=== PATIENT | female | born 1985 | race Caucasian/White ===

== ENCOUNTER 2017-05-22 07:53 | Inpatient (IN) | payer OTHER ==
[~2017-05-22] VITALS: Ht 160 cm; Wt 80.7 kg
[2017-05-22 08:39] LABS: ABSOLUTE BASOPHIL COUNT 0 /CUMM (0.0-0.2); ABSOLUTE EOSINOPHIL COUNT 0 /CUMM (0.0-0.7); ABSOLUTE GRANULOCYTE CT 9.7 /CUMM (1.4-6.5); ABSOLUTE LYMPH COUNT 1.1 /CUMM (1.2-3.4); ABSOLUTE MONOCYTE COUNT 0.6 /CUMM (0.10-0.60); BASOPHIL % 0.3 % (0.0-2.0); EOSINOPHIL % 0.1 % (0-5); GRANULOCYTE % 85.3 % (42.2-75.2); HEMATOCRIT 39.5 % (37-47); MEAN CORPUSCULAR HGB 30.7 PG (27.0-31.0); MEAN CORPUSCULAR HGB CONC 34.3 G/DL (33.0-37.0); MEAN CORPUSCULAR VOLUME 89.7 FL (81.0-99.0); PLATELET COUNT 276 /CUMM (130-400); RBC DISTRIBUTION WIDTH 13.1 % (11.5-14.5); RED BLOOD CELL CT 4.41 /CUMM (4.20-5.40)
--- NOTE | 2017-05-22 09:24 | History & Physical ---
General Information and HPI MD Statement: I have seen and personally examined VIKTOR COHN and documented this H&P. The patient is a 31 year old female at 41 weeks and 1 days gestation who presented with a chief complaint of labor pains. 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 200 mcg q day Rubella non-immune h/o IUGR fibroid uterus Growth good for this depression/anxiety on lexapro 10mg q day Allergies/Medications Allergies: Uncoded Allergies: Allergy Other N Food Allergies N Med Allergies BENADRYL Compliance With Home Meds: GOOD Past History workers compensation coordinator History : 3 Para: 2 Last Menstrual Period: 08/06/2016 Estimated Delivery Date: 05/21/2017 Past workers compensation coordinator History: growth restriction, labor Past Pregnancies Past Pregnancies: 1 Date of Delivery: 09/26/08 Gestational Age: 41 Length of Labor: 6h Weight: 6# 12oz Type of Delivery: vaginal () Anesthesia: epidural Place of Delivery: [facility] Complications: NONE Past Pregnancies: 2 Date of Delivery: 02/15/14 Gestational Age: 39 Length of Labor: 5H Weight: 3#3OZ Type of Delivery: vaginal Anesthesia: EPIDURAL Place of Delivery: [facility] Complications: NONE Medical History Blood Transfusion Hx: No Respiratory: asthma Psychiatric: anxiety, depression Endocrine: Beth's thyroiditis Surgical History Pertinent Surgical History: none Review of Systems Review of Systems Constitutional: Reports: no symptoms. Denies: chills, fever. EENTM: Denies: blurred vision, double vision, visual changes. Cardiovascular: Denies: chest pain, edema. Respiratory: Denies: cough, short of breath. GI: Reports: abdominal pain. Denies: diarrhea, nausea, vomiting. Neurological/Psychological: Reports: anxiety. Exam & Diagnostic Data Last 24 Hrs of Vital Signs/I&O vss Obstetric Exam Wgt Gained During : 10# Pelvimetry: tested to 6#6oz Dilation (cm): 9 Effacement (%): 99 Station: -1 Membranes: intact Fluid: unknown Fundal Height (cm): 36 Multiple Gestation? No Contractions: q 3 min #1 - FHR Baseline: 140 Category: 1 Estimated Weight: 3500g Presentation: vtx Patient for Induction? No Physical Exam General Appearance Alert, Oriented X3, Cooperative, Moderate Distress Skin No Rashes HEENT Atraumatic Neck Supple Cardiovascular Regular Rate Lungs Clear to Auscultation Extremities No Edema Labs Blood Type & Rh: O neg Antibody Screen: neg Hct/Hgb & Platelets #1: 38.2/12.5/252 Hct/Hgb & Platelets #2: 34.5/11/228 Rubella: non-immune VDRL #1: nr VDRL #2: nr HbsAg: neg HIV #1: nr HIV #2 nr 1 Hr P Group B Strep: negative Initial Ultrasound: 10/03/16 7 weeks Anatomy Ultrasound: 12/25/16 normal with 3 cm fibroid in ANGEL Ultrasound for EFW: 05/05/17 21%tile Genetic Testing: nt and cf DNA normal Last 24 Hrs of Labs/Loi: Laboratory Tests 05/22/17 0820: Urinalysis LIGHT H, Urine Color YEL, Urine Clarity HAZY H, Urine pH 6.0, Ur Specific [place] >= 1.030, Urine Protein TRACE H, Urine Ketones 15 H, Urine Nitrite NEG, Urine Bilirubin NEG, Urine Urobilinogen 0.2, Ur Leukocyte Esterase NEG, Ur Microscopic SEDIMENT EXAMINED, Urine RBC 1-3, Urine WBC 1-3 H, Ur Epithelial Cells MOD H, Urine Bacteria MOD H, Urine Mucus MOD H, Urine Hemoglobin TRACE-INTACT, Urine Glucose NEG 05/22/17 0819: CBC w Diff Pending, WBC Pending, RBC Pending, Hgb Pending, Hct Pending, MCV Pending, MCH Pending, MCHC Pending, RDW Pending, Plt Count Pending, MPV Pending, Gran % Pending, Lymphocytes % Pending, Monocytes % Pending, Eosinophils % Pending, Basophils % Pending, Absolute Granulocytes Pending, Absolute Lymphocytes Pending, Absolute Monocytes Pending, Absolute Eosinophils Pending, Absolute Basophils Pending 05/22/17 0800: Membrane Rupture Cancelled Assessment/Plan Assessment/Plan: rH NEGATIVE H/O asthma no meds 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 Normal labor and delivery Core Measures Venous Thromboembolism VTE Risk Factors / No Mechanical VTE Prophylaxis d/t LowRisk-No Interven Req'd No VTE Pharm Prophylaxis d/t LowRisk-No Interven Req'd Attending MD Review Statement Attending Statement Attending MD Statement: examined this patient, discussed with family, discussed w/nursing
--- NOTE | 2017-05-22 09:28 | Labor & Delivery Summary ---
Delivery Summary Vaginal Delivery: Vaginal: vertex Episiotomy/Lacerations: Episiotomy/Lacerations: 1Degree midline lac Type: midline Repair: 3-0 polysorb Anesthesia: bupivicaine 8cc Placenta: Placenta: spontanteous, normal, 3 vessel Anesthesia: none Apgars - 1 Min: 9 Apgars - 5 Min: 9 Additional Comments: delivered after vacuum applied at +2 station BATSHEVA position with 3 pulls secondary to bradycardia and inadequate maternal pushing secondary to anxiety.
[2017-05-22 10:11] LABS: WHITE BLOOD CELL COUNT 11.4 /CUMM (4.8-10.8)
[2017-05-22 10:18] VITALS: BP 130/84
[2017-05-23 07:57] LABS: ABSOLUTE BASOPHIL COUNT 0 /CUMM (0.0-0.2); ABSOLUTE EOSINOPHIL COUNT 0 /CUMM (0.0-0.7); ABSOLUTE GRANULOCYTE CT 7.2 /CUMM (1.4-6.5); ABSOLUTE LYMPH COUNT 1.2 /CUMM (1.2-3.4); ABSOLUTE MONOCYTE COUNT 0.6 /CUMM (0.10-0.60); BASOPHIL % 0.3 % (0.0-2.0); EOSINOPHIL % 0.1 % (0-5); GRANULOCYTE % 79.5 % (42.2-75.2); HEMATOCRIT 35.4 % (37-47); MEAN CORPUSCULAR HGB 30.7 PG (27.0-31.0); MEAN CORPUSCULAR HGB CONC 33.8 G/DL (33.0-37.0); MEAN CORPUSCULAR VOLUME 90.8 FL (81.0-99.0); MEAN PLATELET VOLUME 9.3 FL (7.4-10.4); PLATELET COUNT 221 /CUMM (130-400); RBC DISTRIBUTION WIDTH 13.4 % (11.5-14.5); WHITE BLOOD CELL COUNT 9.1 /CUMM (4.8-10.8)
--- NOTE | 2017-05-23 09:54 | PN- Post Delivery/GYN ---
Subjective Subjective: feeling well asking for early delivery Review of Systems Constitutional: Reports: no symptoms. Denies: chills, fever. EENTM: Denies: blurred vision, double vision, visual changes. Cardiovascular: Denies: chest pain, edema. Respiratory: Denies: short of breath. Gastrointestinal: Denies: abdominal pain, nausea, vomiting. Neurological/Psychological: Denies: anxiety, depressed. Objective Last 24 Hrs of Vital Signs/I&O vss Vital Signs Date Time Temp Pulse Resp B/P B/P Pulse O2 O2 Flow FiO2 Mean Ox Delivery Rate 05/22 1018 130/84 Physical Exam General Appearance Alert, Oriented X3, Cooperative, No Acute Distress Cardiovascular Regular Rate Lungs Clear to Auscultation Abdomen Soft Extremities No Edema Pelvic (FEMALE) lochia serosanganous Current Medications: Current Medications Sig/Keesha Start time Last Medication Dose Route Stop Time Status Admin Acetaminophen 650 MG Q4P PRN 05/22 0930 AC PO Escitalopram Oxalate 5 MG 8AM 05/23 0800 AC 05/22 PO 2336 Hydroxyzine HCl 50 MG AT BEDTIME NEED.. 05/22 2200 AC PO Ibuprofen 800 MG Q6P PRN 05/22 0930 AC 05/23 PO 0400 Levothyroxine Sodium 0.2 MG DAILY AC 05/22 0935 AC 05/23 PO 0718 Magnesium Hydroxide 30 ML DAILY NEEDED PRN 05/22 0930 AC PO Oxytocin 20 UNITS Q5H 05/22 0930 DC 05/22 Lactated Ringer's 1,000 ML IV 05/22 1429 1016 Last 24 Hrs of Labs/Loi: Laboratory Tests 05/23/17 0640: CBC w Diff NO MAN DIFF REQ, RBC 3.90 L, MCV 90.8, MCH 30.7, MCHC 33.8, RDW 13.4 , MPV 9.3, Gran % 79.5 H, Lymphocytes % 13.0 L, Monocytes % 7.1, Eosinophils % 0.1, Basophils % 0.3, Absolute Granulocytes 7.2 H, Absolute Lymphocytes 1.2, Absolute Monocytes 0.6, Absolute Eosinophils 0, Absolute Basophils 0, Kleihauer Cells Pending Assessment/Plan Assessment/Plan PPD #1 vss afebrile plan d/c home today Problem List: 1. Normal labor and delivery Attending MD Review Statement Attending Statement Attending MD Statement: examined this patient, discussed with family, discussed with nursing
[2017-05-23] MEDS ORDERED: IBUPROFEN800 M1 PO (09:56)
== END 2017-05-23 11:35 | DRG 560 ==
LOC: GNO 07:53
PROVIDERS: Obstetrics & Gynecology
PROC: 10D07Z6 Extraction of Products of Conception, Vacuum, Via Natural or Artificial Opening (ICD-10-PCS; principal; 2017-05-22)
PROC: 0HQ9XZZ Repair Perineum Skin, External Approach (ICD-10-PCS; principal; 2017-05-22)
DX: O48.0 Post-term pregnancy (principal); Z3A.41 41 weeks gestation of pregnancy; O76 Abnormality in fetal heart rate and rhythm complicating labor and delivery; O70.0 First degree perineal laceration during delivery; Z37.0 Single live birth; D25.9 Leiomyoma of uterus, unspecified; O99.344 Other mental disorders complicating childbirth; O34.13 Maternal care for benign tumor of corpus uteri, third trimester; O99.52 Diseases of the respiratory system complicating childbirth; O99.284 Endocrine, nutritional and metabolic diseases complicating childbirth; E06.3 Autoimmune thyroiditis; J45.909 Unspecified asthma, uncomplicated; F41.8 Other specified anxiety disorders; Z88.8 Allergy status to other drugs, medicaments and biological substances
CPT/HCPCS: GNOS; 36415; 81001; 84112; J2790